=== PATIENT | female | born 1965 | race Caucasian/White ===

== ENCOUNTER 2020-12-01 08:29 | Outpatient (CLI) | payer OTHER, SELFPAY ==
--- NOTE | ~2020-12-01 | XR_ITS ---
XR lumbar spine 2-3V DATE: 12/01/2020 09:02 INDICATION: Low back pain TECHNIQUE: AP, lateral, flexion and extension lateral and coned lateral lumbosacral views COMPARISON: None FINDINGS: There is mild retrolisthesis at L4-5 in extension, reduced in neutral and flexion. No fracture or bone destruction or spondylolisthesis is noted otherwise. The included lower thoracic and lumbar pedicles are intact. Lumbar and lumbosacral interspaces are relatively preserved. The sacroiliac joints appear normal. IMPRESSION: Mild retrolisthesis at L4-5 in extension, reduced in neutral and flexion Reviewed, dictated and finalized at location A. DROPPER IMPRESSION: Mild retrolisthesis at L4-5 in extension, reduced in neutral and fl exion
--- NOTE | ~2020-12-01 | XR_ITS ---
XR hip RT 2V w AP pelvis DATE: 12/01/2020 09:02 INDICATION: Right hip pain TECHNIQUE: AP pelvis. AP and lateral views of right hip COMPARISON: None FINDINGS: No fracture or dislocation, avascular necrosis or bone destruction of the right hip. No pel karishma fracture or bone destruction. The pubic symphysis and and sacroiliac joints are intact. IMPRESSION: No significant abnormality Reviewed, dictated and finalized at location A. D WOOD TESTER IMPRESSION: No significant abnormality
== END 2020-12-01 08:30 | disposition home or self-care (01) ==
LOC: ANHIMG 08:39
PROVIDERS: PCP Internal Medicine; Visit Provider Internal Medicine
DX: M54.5 Low back pain (principal); G89.29 Other chronic pain; M25.551 Pain in right hip
CPT/HCPCS: 72100; 73502

== ENCOUNTER 2021-11-23 08:15 | Outpatient (CLI) | payer OTHER, SELFPAY ==
--- NOTE | ~2021-11-23 | XR_ITS ---
XR abdomen/kub 1V 11/23/2021 08:45 INDICATION: Upper abdominal pain TECHNIQUE: KUB COMPARISON: None FINDINGS: Bowel gas pattern is normal. Moderate colonic fecal loading. There is no evidence of free a ir, mass, organomegaly, ascites or obstruction. No abnormal calculi are seen. Calcifications in the pelvis are believed to be phleboliths. The bones appear intact. There are multiple punctate radiodens ities in the colon, consistent with bowel content. IMPRESSION: 1: No acute abdominal abnormality identified. Reviewed, dictated and finalized at location B. ICAL DERMATOLOGIST
--- NOTE | ~2021-11-23 | US_ITS ---
US abdomen complete EXAMINATION: US Abdomen Complete INDICATION: Upper abdominal pain PROCEDURE: Realtime High Resolution abdomen ultrasound. COMPARISON: No prior studies for comparison FINDINGS: Gallbladder within normal limits. No gallstones, pericholecystic fluid, gallbladder wall t hickening or biliary dilatation. Common bile duct measures 4 mm. Liver echotexture within normal limits without focal mass. Pancreas within normal limits. Pancreati c tail is obscured by bowel gas. Spleen is unremarkeable. Renal echotexture is within normal limits bilaterally without hydronephrosis, contour deforming mass or renal stone. Right kidney measures 10.8 cm. Left kidney measures 10.3 cm. Visualized aspects of the aorta and IVC are within normal limits. Portal vein is patent. No sonograph ic Hendrickson's sign indicated by the technologist. IMPRESSION: 1: Normal abdominal ultrasound. Reviewed, dictated and finalized at location B. RAISER
[2021-11-23 09:39] LABS: Add Urine Microscopic? YES; Appearance Urine Clear (Clear); Bilirubin Urine Negative (Negative); Color Urine Yellow (Yellow); Glucose Urine UA Negative (Negative); Ketones Urine Negative (Negative); Leukocyte Esterase Ur 1+ LEU/UL (Negative); Mucus Urine Rare /lpf; Nitrate Urine Negative (Negative); Protein Urine Negative (Negative); RBC Urine 0-2 /hpf (0-2); Specific Grav Ur 1.025 (1.001-1.035); Squamous Epithelial Cell Urine Many /hpf (Few); Urobilinogen Urine Negative mg/dL (<2.0)
[2021-11-23 09:45] LABS: Blood Urine Negative (Negative)
== END 2021-11-23 08:16 | disposition home or self-care (01) ==
PROVIDERS: PCP Internal Medicine; Visit Provider Internal Medicine
DX: R10.10 Upper abdominal pain, unspecified (principal); M54.9 Dorsalgia, unspecified; R30.0 Dysuria; R14.0 Abdominal distension (gaseous)
CPT/HCPCS: 74018; 76700; 81001; 87086

== ENCOUNTER 2021-12-16 07:45 | Outpatient (CLI) | payer OTHER, SELFPAY ==
--- NOTE | ~2021-12-16 | NM_ITS ---
EXAMINATION: NM hepatobiliary wo pharm DATE: 12/16/2021 10:26 INDICATION: Right upper quadrant abdominal pain COMPARISON: None. TECHNIQUE: 4.9 mCi Tc-99m mebrofenin (Choletec) was administered intravenously. Scintigraphic images of the abdomen were obtained for one hour. At the 1 hour time point, the patient drank 8 oz Ensure, and imaging was continued for 60 minutes. Gallbladder ejection fraction was calculated by the technol ogist. FINDINGS: There is normal clearance of radiotracer from the blood pool. There is homogeneous tracer u ptake by the liver. Activity progresses to the bowel and gallbladder. The gallbladder ejection fract ion (GBEF) is 48%. Note that with this technique, normal GBEF >= 33%. IMPRESSION: 1. Normal hepatobiliary scan Reviewed, dictated and finalized at location A. Y MARKET CLERK
== END 2021-12-16 07:46 | disposition home or self-care (01) ==
LOC: ANHIMG 07:47
PROVIDERS: PCP Internal Medicine; Visit Provider Internal Medicine
DX: R10.11 Right upper quadrant pain (principal)
CPT/HCPCS: 78226; A9537